=== PATIENT | male | born 1980 ===

== ENCOUNTER 2019-04-15 06:38 | Emergency (ER) | payer SELFPAY ==
[~2019-04-15] VITALS: Ht 185.4 cm; Wt 80.6 kg
--- NOTE | 2019-04-15 06:44 | NUR ---
CALLED FOR TRIAGE NO ANSWER
[2019-04-15 06:48] VITALS: BP 113/60
[2019-04-15] MEDS ORDERED: ONDANSETRON ODT 4 MG PO ONE (07:30)
[2019-04-15] MEDS ORDERED: PLEASE ENTER ALLERGIES MC SCH (07:30)
[2019-04-15] MEDS ORDERED: ONDANSETRON ODT 4 MG ONE (07:35)
[2019-04-15 07:46] LABS: BASOPHILS # (AUTO) 0.01 x10^3/uL (0-0.1); BASOPHILS % (AUTO) 0 % (0-1); EOSINOPHILS # (AUTO) 0.02 x10^3/uL (0-0.4); EOSINOPHILS % (AUTO) 1 % (1-7); LYMPHOCYTES # (AUTO) 1.26 x10^3/uL (1-3.4); LYMPHOCYTES % (AUTO) 27 % (22-44); MD NO; MEAN CORPUSCULAR HEMOGLOBIN 29.4 pg (27.5-34.5); MEAN CORPUSCULAR HGB CONC 32.5 g/dL (33.2-36.2); MEAN CORPUSCULAR VOLUME 90.3 fL (81-97); MEAN PLATELET VOLUME 7.7 fL (7.4-10.4); MONOCYTES # (AUTO) 0.29 x10^3/uL (0.2-0.8); MONOCYTES % (AUTO) 6 % (2-9); NEUTROPHILS # (AUTO) 3.08 x10^3/uL (1.8-6.8); NEUTROPHILS % (AUTO) 66 % (42-75); PLATELET COUNT 204 x10^3/uL (130-400); RED BLOOD COUNT 4.49 x10^6/uL (4.38-5.82); RED CELL DISTRIBUTION WIDTH 15.3 % (9.4-14.8)
[2019-04-15 07:47] LABS: HCT (SEDRATE) 40.6 % (39.2-51.8)
[2019-04-15 07:53] LABS: ALBUMIN 3.8 g/dL (3.4-5.0); ANION GAP 6 mmol/L (5-15); CALCIUM 8.9 mg/dL (8.5-10.1); CHLORIDE 104 mmol/L (98-107); CREATININE 0.88 mg/dL (0.7-1.3)
[2019-04-15] MEDS ORDERED: NEOSPORIN OINT. PKT 1 PACKET ONE (08:49)
--- NOTE | 2019-04-15 08:50 | NUR ---
PA TAPPED ELBOW WITH BLOOD REMOVED. PA PLACED ANTIBIOTIC OINTMENT, DRESSING AND SPENCER BANDAGE. PROVIDED ICE TO ELBOW
--- NOTE | 2019-04-15 09:20 | NUR ---
PT NOT IN ROOM TO RECEIVE DISCHARGE PAPERS OR PRESCRIPTION
== END 2019-04-15 09:35 | disposition home or self-care (01) ==
LOC: ED 07:30
DX: M70.21 Olecranon bursitis, right elbow (principal); K52.9 Noninfective gastroenteritis and colitis, unspecified; I10 Essential (primary) hypertension
CPT/HCPCS: 20605; 36415; 73080; 73130; 80048; 82040; 85025; 85651; 99284; Q0162